=== PATIENT | male | born 1985 | race Caucasian/White ===

== ENCOUNTER 2017-04-07 15:45 | Emergency (ER) | payer OTHER ==
[~2017-04-07] VITALS: Ht 177.8 cm; Wt 68.0 kg
[2017-04-07 17:39] LABS: BASOPHILS 0.4 % (0.0-2.0); EOSINOPHILS 0.4 % (0.0-3.0); HEMOGLOBIN 15.3 gm/dL (14.0-18.0); LYMPHOCYTES 12.1 % (24.0-44.0); MCH 34.2 pg (26.0-34.0); MCHC 35.5 g/dL (28.0-37.0); MCV 96.3 fL (80.0-100.0); MONOCYTES 7.5 % (1.0-8.0); PLATELET COUNT 193 thou/uL (150-400); POLYS 79.6 % (36.0-66.0); RBC 4.47 mil/uL (4.50-6.00); RDW 12.6 % (10.5-14.5); WBC 15.1 thou/uL (4.0-11.0)
[2017-04-07 17:45] LABS: MANUAL DIFF NO
[2017-04-07 17:49] LABS: CALCIUM 9.5 mg/dL (8.5-10.1); POTASSIUM 3.8 mmol/L (3.5-5.1)
[2017-04-07 17:53] LABS: ALBUMIN 4.7 g/dL (3.4-5.0); TOTAL BILIRUBIN 0.6 mg/dL (<0.1-1.0); TOTAL PROTEIN 7.9 g/dL (6.4-8.2)
[2017-04-07] MEDS ORDERED: LEVSIN0.125 MG PO (17:55)
[2017-04-07] MEDS ORDERED: PHENERGAN 25 MG25 M1 PO (17:55)
[2017-04-07] MEDS ORDERED: FAMOTIDINE 20 M20 MG PO (17:55)
[2017-04-07] MEDS ORDERED: CARAFATE 1 GM TA1 G1 PO (17:55)
[2017-04-07 18:25] VITALS: BP 117/76
== END 2017-04-07 18:32 | disposition home or self-care (01) ==
LOC: ER 15:45
PROVIDERS: Physician Assistant
DX: K29.70 Gastritis, unspecified, without bleeding (principal); F17.210 Nicotine dependence, cigarettes, uncomplicated; F12.10 Cannabis abuse, uncomplicated

== ENCOUNTER 2017-04-10 10:03 | Inpatient (IN) | payer OTHER ==
[2017-04-10] VITALS (29 sets, daily range): BP systolic 77–161; BP diastolic 44–97
[~2017-04-10] VITALS: Ht 177.8 cm; Wt 58.1 kg
[~2017-04-10 10:03] MED LIST: CARAFATE 1 GM TA1 G1 PO; FAMOTIDINE 20 M20 MG PO; LEVSIN0.125 MG PO; PHENERGAN 25 MG25 M1 PO
[2017-04-10 10:31] LABS: HEMATOCRIT 42.5 % (42.0-52.0); HEMOGLOBIN 14.7 gm/dL (14.0-18.0); MCH 33.5 pg (26.0-34.0); MCHC 34.6 g/dL (28.0-37.0); MCV 96.7 fL (80.0-100.0); PLATELET COUNT 174 thou/uL (150-400); RDW 12.7 % (10.5-14.5); WBC 16.1 thou/uL (4.0-11.0)
[2017-04-10 10:32] LABS: MANUAL DIFF YES
[2017-04-10 10:35] LABS: ANION GAP 8 mmol/L (7-16); BUN 13 mg/dL (7-18); CALCIUM 9.8 mg/dL (8.5-10.1); CHLORIDE 101 mmol/L (98-107); CO2 31 mmol/L (21-32); CREATININE 0.9 mg/dL (0.7-1.3); GLUCOSE 113 mg/dL (74-106); POTASSIUM 3.7 mmol/L (3.5-5.1); SODIUM 140 mmol/L (136-145)
[2017-04-10 10:40] LABS: ALBUMIN 4.8 g/dL (3.4-5.0); ALKALINE PHOSPHATASE 53 U/L (46-116); DIRECT BILIRUBIN < 0.1 mg/dL (<0.1-0.3); SGOT 17 U/L (15-37); SGPT 17 U/L (30-65); TOTAL BILIRUBIN 0.5 mg/dL (<0.1-1.0); TOTAL PROTEIN 7.5 g/dL (6.4-8.2)
[2017-04-10 11:21] LABS: ABSOLUTE NEUTROPHILS 14.3 thou/uL (1.4-8.2); TOTAL CELL COUNT 100
[2017-04-10 11:22] LABS: ANISOCYTOSIS SLIGHT
[2017-04-10] MEDS ORDERED: ALEVE220 MG PO (22:22)
[2017-04-11] VITALS (31 sets, daily range): BP systolic 98–114; BP diastolic 60–83
[2017-04-11 04:34] LABS: BASOPHILS 0.1 % (0.0-2.0); EOSINOPHILS 0.5 % (0.0-3.0); HEMATOCRIT 37.4 % (42.0-52.0); LYMPHOCYTES 10.1 % (24.0-44.0); MCHC 33.9 g/dL (28.0-37.0); MCV 97.5 fL (80.0-100.0); MONOCYTES 6.8 % (1.0-8.0); PLATELET COUNT 153 thou/uL (150-400); POLYS 82.5 % (36.0-66.0); RBC 3.84 mil/uL (4.50-6.00); RDW 12.9 % (10.5-14.5); WBC 18.2 thou/uL (4.0-11.0)
[2017-04-11 04:42] LABS: HEMOGLOBIN 12.7 gm/dL (14.0-18.0); MANUAL DIFF NO
[2017-04-11 04:46] LABS: CALCIUM 8.7 mg/dL (8.5-10.1); CREATININE 0.8 mg/dL (0.7-1.3); POTASSIUM 4.1 mmol/L (3.5-5.1)
[2017-04-12] VITALS (19 sets, daily range): BP systolic 95–113; BP diastolic 56–76
[2017-04-13 05:30] VITALS: BP 111/77
[2017-04-13 07:47] VITALS: BP 105/70
[2017-04-13 16:06] VITALS: BP 103/69
[2017-04-13 20:00] VITALS: BP 110/75
[2017-04-14 04:00] VITALS: BP 109/78
[2017-04-14 05:49] LABS: HEMATOCRIT 34.4 % (42.0-52.0); HEMOGLOBIN 11.9 gm/dL (14.0-18.0); MCH 33.8 pg (26.0-34.0); MCHC 34.7 g/dL (28.0-37.0); MCV 97.2 fL (80.0-100.0); RBC 3.53 mil/uL (4.50-6.00); RDW 12.9 % (10.5-14.5); WBC 10.5 thou/uL (4.0-11.0)
[2017-04-14 06:02] LABS: CALCIUM 8.5 mg/dL (8.5-10.1); POTASSIUM 3.2 mmol/L (3.5-5.1)
[2017-04-14 08:17] VITALS: BP 125/78
[2017-04-14 09:36] VITALS: BP 108/43
[2017-04-14 19:05] VITALS: BP 106/65
[2017-04-15 04:13] VITALS: BP 115/75
[2017-04-15 04:51] LABS: HEMATOCRIT 40.9 % (42.0-52.0); MCH 33.1 pg (26.0-34.0); MCV 97.5 fL (80.0-100.0); RBC 4.19 mil/uL (4.50-6.00); RDW 12.8 % (10.5-14.5); WBC 9.6 thou/uL (4.0-11.0)
[2017-04-15 04:55] LABS: HEMOGLOBIN 13.9 gm/dL (14.0-18.0)
[2017-04-15 05:05] LABS: CALCIUM 9.3 mg/dL (8.5-10.1); POTASSIUM 3.4 mmol/L (3.5-5.1)
[2017-04-15 07:58] VITALS: BP 113/72
[2017-04-15 15:32] VITALS: BP 110/74
[2017-04-15 19:10] VITALS: BP 112/79
[2017-04-16 03:30] VITALS: BP 122/86
[2017-04-16 07:00] VITALS: BP 117/85
[2017-04-16 15:00] VITALS: BP 113/87
[2017-04-16 19:15] VITALS: BP 118/82
[2017-04-17 03:30] VITALS: BP 117/80
[2017-04-17 07:21] VITALS: BP 118/85
[2017-04-17] MEDS ORDERED: HYDROCODON-ACE1 EAC7 PO (10:35)
[2017-04-17] MEDS ORDERED: ZOFRAN ODT4 MG DISSOLVE (10:35)
[2017-04-17 14:25] VITALS: BP 118/85
== END 2017-04-17 15:03 | disposition home or self-care (01) | DRG 326 ==
LOC: ER 10:03 → EROBS 12:40 → ICU 12:40 → 3N 04-12 14:47
PROVIDERS: Emergency Medicine; Surgery
PROC: 0DB60ZX Excision of Stomach, Open Approach, Diagnostic (ICD-10-PCS; principal; 2017-04-10)
PROC: 0DU907Z Supplement Duodenum with Autologous Tissue Substitute, Open Approach (ICD-10-PCS; principal; 2017-04-10)
PROC: 0WJG0ZZ Inspection of Peritoneal Cavity, Open Approach (ICD-10-PCS; principal; 2017-04-10)
DX: K25.5 Chronic or unspecified gastric ulcer with perforation (principal); E43 Unspecified severe protein-calorie malnutrition; Z68.1 Body mass index [BMI] 19.9 or less, adult; F17.210 Nicotine dependence, cigarettes, uncomplicated; K21.9 Gastro-esophageal reflux disease without esophagitis; F12.90 Cannabis use, unspecified, uncomplicated; Z79.899 Other long term (current) drug therapy; Z88.6 Allergy status to analgesic agent
CPT/HCPCS: 10078; 10096; 50010; 50101; 50386; 51412; 56525; 56527; 56528; 57092; 62110; 62900; 70005